=== PATIENT | female | born 2000 | race Caucasian/White ===

== ENCOUNTER 2023-07-04 00:16 | Emergency (ER) | payer SELFPAY ==
[2023-07-04] MEDS ORDERED: Albuterol/Ipratropium 3.0-0.5 MG/3 ML Neb Soln NEB ONE (02:02)
[2023-07-04 02:40] LABS: CORONAVIRUS COVID-19 NAA POSITIVE (NEGATIVE); INFLUENZA A NAA NEGATIVE (NEGATIVE); RESPIRATORY SYNCYTIAL VIR NAA NEGATIVE (NEGATIVE)
== END 2023-07-04 03:00 | disposition home or self-care (01) ==
LOC: JD.ED 00:16
DX: U07.1 COVID-19 (principal); Z79.899 Other long term (current) drug therapy
CPT/HCPCS: 0241U; 71045; 94640; 99284; J7620-GY

== ENCOUNTER 2023-07-21 15:04 | Emergency (ER) | payer OTHER ==
[2023-07-21] MEDS ORDERED: Ketorolac 60 MG/2 ML SDV IM ONE (16:21)
== END 2023-07-21 16:45 | disposition home or self-care (01) ==
LOC: JD.ED 15:04
DX: K02.9 Dental caries, unspecified (principal)
CPT/HCPCS: 96372; 99282; J1885